=== PATIENT | male | born 1990 | race Caucasian/White ===

== ENCOUNTER 2017-05-02 11:50 | Emergency (ER) | payer OTHER ==
[2017-05-02 12:07] VITALS: BP 144/99
--- NOTE | 2017-05-02 13:09 | EDM.PDOC ---
ED HPI GENERAL MEDICAL PROBLEM - General Chief Complaint: Gastrointestinal Problem Stated Complaint: SENT BY [facility] FOR A CT Time Seen by Provider: 05/02/17 12:51 Source of Information: Reports: Patient, RN Notes Reviewed History Limitations: Reports: No Limitations - History of Present Illness INITIAL COMMENTS - FREE TEXT/NARRATIVE: The patient states that he has had left upper quadrant abdominal pain since February 2017. He describes the character as a pressure sensation, occasionally sharp. It is constant. He has had occasional nausea, but only one episode of emesis, 2 weeks ago. He states that he had some watery, nonbloody diarrhea that lasted about 2 weeks, 2 weeks ago. He states that he had a temperature of 102 about 2 weeks ago. No urinary symptoms. He states that he underwent an EGD on 03/27/2017, which was reportedly negative. He was then admitted to [facility] from 04/08/2017 through 04/10/2017. He states that blood, urine, and stool studies were performed and were negative. He states that he was discharged home without a diagnosis, but prescribed a 10 day course of oral Flagyl. He now presents to the ED, stating that his pain has progressively been getting worse. He was seen at the walk-in clinic, who directed him here. Prior to February 2017, the patient states that he has not had similar symptoms. The patient's PCP is Dr. Raygoza. The patient has not seen Dr. Raygoza for this issue. Middle Abdomen Pain Score (Numeric/FACES): 5 - Related Data Allergies Allergy/AdvReac Type Severity Reaction Status Date / Time latex Allergy Rash Verified 05/02/17 11:58 Home Meds: Home Meds . [No Known Home Meds] 05/02/17 [History] Past Medical History - Past Surgical History HEENT Surgical History: Reports: Oral Surgery ([place] teeth extraction) Social & Family History - Family History GI: Reports: Other (See Below) Other GI Family History: Grandfather and uncle had colon cancer - Tobacco Use Smoking Status *Q: Never Smoker Second Hand Smoke Exposure: No - Caffeine Use Caffeine Use: Reports: None - Alcohol Use Alcohol Use History: Yes Alcohol Use Frequency: Socially - Recreational Drug Use Recreational Drug Use: No - Living Situation & Occupation Living situation: Reports: Single, Alone Occupation: Employed (Collection Supervisor) ED ROS GENERAL - Review of Systems Review Of Systems: See Below Constitutional: Reports: Fever (as per the HPI) HEENT: Reports: No Symptoms Respiratory: Reports: No Symptoms Cardiovascular: Reports: No Symptoms Endocrine: Reports: No Symptoms GI/Abdominal: Reports: Abdominal Pain (as per the HPI), Diarrhea (as per the HPI ), Nausea (as per the HPI) : Reports: No Symptoms Musculoskeletal: Reports: No Symptoms Skin: Reports: No Symptoms Neurological: Reports: No Symptoms Psychiatric: Reports: No Symptoms Hematologic/Lymphatic: Reports: No Symptoms Immunologic: Reports: No Symptoms ED EXAM, GI/ABD - Physical Exam Exam: See Below Exam Limited By: No Limitations General Appearance: Alert, WD/WN, No Apparent Distress Eyes: Bilateral: Normal Appearance, EOMI Ears: Normal External Exam, Hearing Grossly Normal Nose: Normal Inspection, No Blood Throat/Mouth: Normal Inspection, Normal Lips, Normal Voice, No Airway Compromise Head: Atraumatic, Normocephalic Neck: Normal Inspection, Full Range of Motion Respiratory/Chest: No Respiratory Distress, Lungs Clear, Normal Breath Sounds, No Accessory Muscle Use Cardiovascular: Normal Peripheral Pulses, Regular Rate, Rhythm, No Gallop, No JVD, No Murmur, No Rub GI/Abdominal: Normal Bowel Sounds, Soft, Non-Tender (including to the left upper quadrant), No Organomegaly, No Distention, No Abnormal Bruit, No Mass (Male) Exam: Deferred Rectal (Males) Exam: Deferred Back Exam: Normal Inspection, Full Range of Motion. No: CVA Tenderness (L), CVA Tenderness (R) Extremities: Normal Inspection, Normal Range of Motion, No Pedal Edema, Normal Capillary Refill Neurological: Alert, Oriented, Normal Cognition, No Motor/Sensory Deficits Psychiatric: Normal Affect Skin Exam: Warm, Dry, Intact, Normal Color, No Rash Lymphatic: No Adenopathy Course - Vital Signs Last Recorded V/S: Last Vital Signs Temp 36.0 C 05/02/17 11:58 Pulse 66 05/02/17 11:58 Resp 18 05/02/17 11:58 BP 144/99 H 05/02/17 11:58 Pulse Ox 100 05/02/17 11:58 - Re-Assessments/Exams Free Text/Narrative Re-Assessment/Exam: 05/02/17 13:04 Given the long duration of the patient's symptoms, along with his recent nondiagnostic admission to [facility] and today's benign abdominal exam, I am not recommending that we perform a CT scan today. The likelihood of finding a significant abnormality is extremely small. I am recommending, instead , that the patient follow-up with Dr. Fisher, who may want to perform a colonoscopy. She could also order an outpatient CT scan or MRI of the abdomen, if she felt it necessary. The patient is agreeable to this plan. Departure - Departure Time of Disposition: 13:06 Disposition: Home, Self-Care 01 Condition: Good Clinical Impression: Abdominal pain of unknown etiology, Nausea - Discharge Information Instructions: Nausea, Adult, Abdominal Pain, Adult, [id number] Referrals: David Price MD [Primary Care Provider] - Marcela Fisher MD [Physician] - Forms: ED Department Discharge Additional Instructions: You were seen in the emergency room for upper left abdominal pain since February, along with occasional nausea, vomiting, and diarrhea. On examination, your abdomen is soft, you have normal bowel sounds, and your upper left abdomen is nontender to palpation. Given the duration of your symptoms, your recent nondiagnostic admission to [facility], and your normal abdominal exam today, we are not recommending a CAT scan of your abdomen and pelvis today, as the likelihood of finding a significant abnormality is extremely small. Follow-up with the surgeon Dr. Marcela Fisher at the next available appointment. She may wish to perform a colonoscopy, and can order a CT or MRI of your abdomen if she feels it necessary. If any other problems, please do not hesitate to return to the ER.
== END 2017-05-02 13:25 | disposition home or self-care (01) ==
LOC: JD.ED 11:50
DX: R10.12 Left upper quadrant pain (principal); R11.0 Nausea; Z91.040 Latex allergy status
CPT/HCPCS: 99283